=== PATIENT | male | born 1985 | race African-American/Black ===

== ENCOUNTER 2025-03-10 07:25 | Inpatient (IN) | payer MEDICAID, OTHER ==
[~2025-03-10] VITALS: Ht 177.8 cm; Wt 110.6 kg
[2025-03-10] MEDS: ONDANSETRON HCL 4 MG/2 ML VIAL IV ONE (08:24)
[2025-03-10] MEDS: KETOROLAC TROMETH 30 MG/ML 1ML VIAL IV ONE (08:24)
[2025-03-10 08:30] VITALS: PULSE 67; RESP 18; O2SAT 98
--- NOTE | 2025-03-10 08:44 | DVH ---
CLINICAL INFORMATION: Left kidney stone. TECHNIQUE: Axial CT images of the abdomen and pelvis were obtained without IV contrast. Coronal and sagittal reformatted images were obtained, reviewed, and stored. Evaluation of the parenchymal organs is limited without IV contrast. Evaluation of the bowel and mesentery is limited without oral contrast. All CT scans at this medical facility are performed using dose modulation techniques as appropriate to a performed exam including the following: Automated exposure control was utilized; adjustment of the MA and/or KV according to patient size; and use of iterative reconstruction technique. CTDIvol = 23.23 mGy DLP = 1490.16 mGy-cm COMPARISON: None FINDINGS: Lung bases: Lung bases are clear. Liver: Grossly unremarkable in its noncontrast enhanced appearance. No abnormal density or focal lesion identified. Biliary: No calcified gallstones or biliary ductal dilatation. Spleen: Unremarkable. Pancreas: Grossly unremarkable in its noncontrast enhanced appearance. Adrenal glands: Left adrenal nodule measures up to 2 cm with indeterminate density on noncontrast enhanced CT. Kidneys and bladder: Moderate left hydronephrosis and hydroureter. Obstructing calculus measuring up to 2.5 mm at the ureterovesical junction. There is also a calculus in the left posterior bladder measuring up to 5 mm, possibly a recently passed calculus. No other urinary calculi visualized. Aorta/Vascular: No aneurysm or significant calcification. Lymph nodes: No mass or lymphadenopathy. Bowel/mesentery: No small bowel obstruction. No free air or free fluid. Appendix is visualized and appears unremarkable. Scattered small colonic diverticula without adjacent inflammatory changes to suggest diverticulitis. Moderate stool in the colon. Pelvic organs: Grossly unremarkable. Abdominal wall: No mass or hernia. Bones: No acute fracture or suspicious intraosseous lesion. IMPRESSION: 1. Moderate left hydronephrosis and hydroureter with obstructing 2.5 mm calculus at the left ureterovesical junction. There is also a 5 mm calculus in the left posterior bladder, which may be a recently passed calculus. Correlate with clinical findings. 2. No other renal or ureteral calculi are seen. 3. Scattered small colonic diverticula without adjacent inflammatory changes to suggest diverticulitis. 4. Moderate stool in the colon. 5. Indeterminate left adrenal nodule measuring up to 2 cm. Are ACR white paper on incidentally detected adrenal masses, for 1-2 cm adrenal masses with no prior imaging and no cancer history, most likely benign etiology. Consider 12 month follow-up adrenal CT.
[2025-03-10 09:20] LABS: Hematocrit 47.0 % (41.0-53.0); Hemoglobin 16.0 g/dL (13.5-17.5); Mean Corpuscular Hemoglobin 34.0 pg (28.0-32.0); Mean Corpuscular Volume 99.8 fL (80.0-100.0); Nucleated Red Blood Cells % 0.1 %
[2025-03-10 09:22] LABS: Potassium 4.5 mmol/L (3.5-5.1); Sodium 142 mmol/L (136-145)
[2025-03-10 09:23] LABS: Anion Gap 7 (5-15); Calcium 10.1 mg/dL (8.7-10.4); Carbon Dioxide 24 mmol/L (20-31)
[2025-03-10 09:28] LABS: BUN/Creatinine Ratio 6.5 (10.0-20.0); Blood Urea Nitrogen 13 mg/dL (9-23); Chloride 111 mmol/L (98-107); Glucose 86 mg/dL (74-106)
[2025-03-10] MEDS: MORPHINE SULFATE 4 MG/ML SYR/VIAL IV ONE (13:22)
[2025-03-10 13:43] LABS: Urine Budding Yeast FEW /hpf (None Seen); Urine Protein, UAD Negative (Negative)
--- NOTE | 2025-03-10 14:24 | ED.PDOC ---
General HPI Comments 39-year-old male here today with the complaints of left-sided flank pain that has been going on for five days. Patient states that he was diagnosed with a kidney stone approximately five days ago and was prescribed ibuprofen and told that the kidney stone would pass but his pain has persisted and even gotten worse. No dysuria or hematuria. Endorses nausea without vomiting. No fevers or chills. No trauma. No rash. No other pain or symptoms. No prior surgical history on his abdomen. No Testicular pain. Chief Complaint: Flank Pain Time Seen by MD: 07:41 Allergies: Coded Allergies: NO KNOWN ALLERGIES (Unverified , 03/10/25) Mode of Arrival: Ambulatory Past Medical History Past Medical History (Contd): Kidney stone Surgical History: Denies all surgeries All Other Systems: Reviewed and Negative (Negative except as per HPI above) Physical Exam General Appearance: Mild Distress, Normal HEENT: Normal ENT Inspection, Pharynx Normal, TMs Normal Neck: Full Range of Motion, Non-Tender, Normal, Normal Inspection Respiratory: Chest Non-Tender, Lungs Clear, No Accessory Muscle Use, No Respiratory Distress, Normal Breath Sounds Cardiovascular: No Edema, No JVD, No Murmur, No Gallop, Normal Peripheral Pulses, Regular Rate/Rhythm Breast Exam: Deferred Gastrointestinal: No Organomegaly, Non Tender, No Pulsatile Mass, Normal Bowel Sounds, Soft, Other (Mild left CVAT) Genitalia: Deferred Pelvic: Deferred Rectal: Deferred Extremities: No calf tenderness, Normal capillary refill, Normal inspection, Normal range of motion, Non-tender, No pedal edema Musculoskeletal : Apperance: Normal 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, bunch maker II-XII nml as Tested, No Motor Deficits, Normal Affect, Normal Mood, No Sensory Deficits Cerebellar Function: Normal Reflexes: Normal Skin: Dry, Normal Color, Warm Lymphatic: No Adenopathy Was a procedure done? Was a procedure done?: No Differential Diagnosis Kidney stone (Female): AAA, , Appendicitis, Bowel obstruction, Cholelithiasis, Musculoskeletal pain, Renal failure, Urinary obstruction, Urolithiasis X-Ray, Labs, Meds, VS Vital Signs Date Time Temp Pulse Resp B/P (MAP) Pulse Ox O2 Delivery O2 Flow Rate FiO2 03/10/25 14:08 98.7 66 19 141/105 (117) 99 98.7 03/10/25 14:07 66 19 141/105 03/10/25 13:22 80 22 152/95 03/10/25 13:20 80 20 152/95 (114) 97 03/10/25 10:22 98.2 69 18 176/138 (151) 99 98.2 03/10/25 08:30 67 18 98 Room Air* 0 21 03/10/25 08:03 67 18 98 Room Air 03/10/25 08:00 98.2 67 18 163/101 (121) 98 98.2 03/10/25 07:27 98.1 66 18 160/92 96 98.1 Lab Test 03/10/25 11:16 03/10/25 08:58 Range/Units Urine Color Colorless Yellow Urine Clarity Turbid H Clear Urine pH 5.5 5.0-9.0 Urine Specific [place] 1.006 1.001-1.035 Urine Protein Negative Negative Urine Ketones Negative Negative Urine Blood 3+ H Negative /uL Urine Nitrite Negative Negative Urine Bilirubin Negative Negative Urine Urobilinogen Normal Negative mg/dL Urine Leukocyte Esterase 1+ Negative /uL Urine RBC 13 0 - 3 /hpf Urine Microscopic WBC 21 H 0-3 /HPF Urine Squamous Epithelial Cells None seen <5 /hpf Urine Bacteria Few H None Seen /hpf Urine Yeast (Budding) Few None Seen /hpf Urine Glucose Normal Normal mg/dL White Blood Count 8.8 4.4-10.8 10^3/uL Red Blood Count 4.71 4.5-5.90 10^6/uL Hemoglobin 16.0 13.5-17.5 g/dL Hematocrit 47.0 41.0-53.0 % Mean Corpuscular Volume 99.8 80.0-100.0 fL Mean Corpuscular Hemoglobin 34.0 H 28.0-32.0 pg Mean Corpuscular Hemoglobin Concent 34.0 32.0-36.0 g/dL Red Cell Distribution Width 14.1 11.8-14.3 % Platelet Count 264 140-450 10^3/uL Mean Platelet Volume 7.7 6.9-10.8 fL Neutrophils (%) (Auto) 65.0 37.0-80.0 % Lymphocytes (%) (Auto) 25.9 10.0-50.0 % Monocytes (%) (Auto) 7.5 0.0-12.0 % Eosinophils (%) (Auto) 1.1 0.0-7.0 % Basophils (%) (Auto) 0.5 0.0-2.0 % Neutrophils # (Auto) 5.7 1.6-8.6 10 ^3/uL Lymphocytes # (Auto) 2.3 0.4-5.4 10 ^3/uL Monocytes # (Auto) 0.7 0-1.3 10 ^3/uL Eosinophils # (Auto) 0.1 0-0.8 10 ^3/uL Basophils # (Auto) 0 0-0.2 10 ^3/uL Nucleated Red Blood Cells 0.1 % Sodium Level 142 136-145 mmol/L Potassium Level 4.5 3.5-5.1 mmol/L Chloride Level 111 H 98-107 mmol/L Carbon Dioxide Level 24 20-31 mmol/L Anion Gap 7 5-15 Blood Urea Nitrogen 13 9-23 mg/dL Creatinine 1.99 H 0.700-1.30 mg/dL Glomerular Filtration Rate Calc 42 >90 mL/min BUN/Creatinine Ratio 6.5 L 10.0-20.0 Serum Glucose 86 74-106 mg/dL Calcium Level 10.1 8.7-10.4 mg/dL Current Medications Medications (Trade) Dose Ordered Sig/Roger Route Start Time Stop Time Status Last Admin Ketorolac Tromethamine (Toradol Injection) 15 mg ONCE ONCE IV 03/10/25 08:00 03/10/25 08:02 DC 03/10/25 08:24 Ondansetron HCl (Zofran) 4 mg O ONCE IV 03/10/25 08:00 03/10/25 08:02 DC 03/10/25 08:24 Morphine Sulfate 4 mg ONCE ONCE IV 03/10/25 13:00 03/10/25 13:01 DC 03/10/25 13:22 X-Ray, Labs, Meds, VS Comment 39-year-old male with known history of kidney stone here today with a presentat ion consistent with infected obstructed stone given positive UA with evidence of UTI and creatinine elevation and evidence of hydronephrosis on CT scan. Patient was started on fluids, pain medication, and antibiotics and will be admitted for further management and care. Images Reviewed?: Images reviewed and evaluated by me Time of 1ST Reevaluation: 14:22 Reevaluation 1ST: Unchanged Patient Education/Counseling: Diagnosis, Treatment, Prognosis Family Education/Counseling: No Family Present SEPSIS Sepsis Screen Date sepsis recognized/suspect: Mar 10, 2025 Time Sepsis recognized/suspect: 727 Recent Procedure: No On Antibiotic Therapy: No Respiratory Rate >20: No Heart Rate >90: No Temp<36 C (96.8 F) or >38.3 C: No SBP <90 or MAP <65 mmHG: No New Acute Mental Status Change: No Is the patient on CPAP, BIPAP,: No Physician Orders Ct Ab Pel Wo Con-No Oral Or Iv (03/10/25 07:58) Ondansetron Hcl (Zofran) (03/10/25 08:00) Ceftriaxone 1gm/50ml (Rocephin) (03/10/25 14:30) Sodium Chloride 0.9% (03/10/25 14:30) Vital Signs Date Time Temp Pulse Resp B/P (MAP) Pulse Ox O2 Delivery O2 Flow Rate FiO2 03/10/25 14:08 98.7 66 19 141/105 (117) 99 98.7 03/10/25 14:07 66 19 141/105 03/10/25 13:22 80 22 152/95 03/10/25 13:20 80 20 152/95 (114) 97 03/10/25 10:22 98.2 69 18 176/138 (151) 99 98.2 03/10/25 08:30 67 18 98 Room Air* 0 21 03/10/25 08:03 67 18 98 Room Air 03/10/25 08:00 98.2 67 18 163/101 (121) 98 98.2 03/10/25 07:27 98.1 66 18 160/92 96 98.1 Laboratory Tests Test 03/10/25 08:58 White Blood Count 8.8 10^3/uL (4.4-10.8) Medications Medications Dose Ordered Sig/Roger Route Start Time Stop Time Status Last Admin Dose Admin Ketorolac Tromethamine 15 mg ONCE ONCE IV 03/10/25 08:00 03/10/25 08:02 DC 03/10/25 08:24 Morphine Sulfate 4 mg ONCE ONCE IV 03/10/25 13:00 03/10/25 13:01 DC 03/10/25 13:22 Ondansetron HCl 4 mg O ONCE IV 03/10/25 08:00 03/10/25 08:02 DC 03/10/25 08:24 Departure 1 Departure Time of Disposition: 14:23 Impression: Primary Impression: Kidney stone on left side Additional Impressions: Hydronephrosis due to obstruction of ureter Pyelonephritis Disposition: ADMITTED INPATIENT Admit to: Tele Condition: Guarded Critical Care Note Critical Care Time?: Yes (35 min-critical care time only) Stability Stability form required: No Heart Score Heart Score: Heart Score Response (Comments) Value History N/A 0 EKG N/A 0 Age N/A 0 Risk Factors N/A 0 Troponin N/A 0 Total 0 LEONEL LAGOS MD Mar 10, 2025 14:23
[2025-03-10] MEDS ORDERED: ACETAMINOPHEN 325 MG TAB PO PRN (14:45)
--- NOTE | 2025-03-10 14:57 | DVHHP2 ---
History of Present Illness History of Present Illness This is a 39-year-old male with no past medical history who presents with five days of left flank pain. He was evaluated at another facility where he was diagnosed with kidney stones and discharged on ibuprofen, but his pain persisted. He denies dysuria, frequency, urgency, fever, chills, nausea, or vomiting. On arrival he is afebrile, hemodynamically stable except for elevated blood pressure, and his pain continues despite analgesics. Labs show creatinine 1.9 (baseline unknown) and UA with hematuria and trace leukocyte esterase. CT abdomen/pelvis shows a 2.5 mm calculus at the left ureterovesical junction with mild left hydroureteronephrosis and a 5 mm calculus in the bladder, likely recently passed. PMHx: None. PSHx: None. Social History: Denies tobacco, alcohol, or illicit drugs. Lives at home. Allergies: NKDA. Medications: None at home. ROS: Negative except for left flank pain. Review of Systems Allergies: Coded Allergies: NO KNOWN ALLERGIES (Unverified , 03/10/25) Medications Current Medications Medications Dose Ordered Sig/Roger Route Start Time Stop Time Status Last Admin Dose Admin Sodium Chloride 1,000 ml @ 120 mls/hr Q8H20M IV 03/10/25 14:45 UNV Acetaminophen 650 mg Q6HP PRN PO 03/10/25 14:45 UNV Morphine Sulfate 2 mg Q4HPRN PRN IV 03/10/25 14:45 UNV Ketorolac Tromethamine 30 mg Q6HPRN PRN IV 03/10/25 14:45 03/15/25 14:44 UNV Ceftriaxone Sodium 50 ml @ 100 mls/hr DAILY@09 IV 03/10/25 14:45 UNV Tamsulosin HCl 0.4 mg QPM PO 03/10/25 14:45 UNV Exam Vital Signs Vital Signs Date Time Temp Pulse Resp B/P (MAP) Pulse Ox O2 Delivery O2 Flow Rate FiO2 03/10/25 14:08 98.7 66 19 141/105 (117) 99 98.7 03/10/25 08:30 Room Air* 0 21 Exam General: Alert, in mild distress due to pain. Lungs: Clear to auscultation. Heart: Regular rhythm. Abdomen: Soft, nondistended, no rebound or guarding. Back: Left CVA tenderness present. Extremities: No edema. Neuro: Nonfocal. Labs/Xrays Labs Test 03/10/25 11:16 03/10/25 08:58 Range/Units Urine Color Colorless Yellow Urine Clarity Turbid H Clear Urine pH 5.5 5.0-9.0 Urine Specific [place] 1.006 1.001-1.035 Urine Protein Negative Negative Urine Ketones Negative Negative Urine Blood 3+ H Negative /uL Urine Nitrite Negative Negative Urine Bilirubin Negative Negative Urine Urobilinogen Normal Negative mg/dL Urine Leukocyte Esterase 1+ Negative /uL Urine RBC 13 0 - 3 /hpf Urine Microscopic WBC 21 H 0-3 /HPF Urine Squamous Epithelial Cells None seen <5 /hpf Urine Bacteria Few H None Seen /hpf Urine Yeast (Budding) Few None Seen /hpf Urine Glucose Normal Normal mg/dL White Blood Count 8.8 4.4-10.8 10^3/uL Red Blood Count 4.71 4.5-5.90 10^6/uL Hemoglobin 16.0 13.5-17.5 g/dL Hematocrit 47.0 41.0-53.0 % Mean Corpuscular Volume 99.8 80.0-100.0 fL Mean Corpuscular Hemoglobin 34.0 H 28.0-32.0 pg Mean Corpuscular Hemoglobin Concent 34.0 32.0-36.0 g/dL Red Cell Distribution Width 14.1 11.8-14.3 % Platelet Count 264 140-450 10^3/uL Mean Platelet Volume 7.7 6.9-10.8 fL Neutrophils (%) (Auto) 65.0 37.0-80.0 % Lymphocytes (%) (Auto) 25.9 10.0-50.0 % Monocytes (%) (Auto) 7.5 0.0-12.0 % Eosinophils (%) (Auto) 1.1 0.0-7.0 % Basophils (%) (Auto) 0.5 0.0-2.0 % Neutrophils # (Auto) 5.7 1.6-8.6 10 ^3/uL Lymphocytes # (Auto) 2.3 0.4-5.4 10 ^3/uL Monocytes # (Auto) 0.7 0-1.3 10 ^3/uL Eosinophils # (Auto) 0.1 0-0.8 10 ^3/uL Basophils # (Auto) 0 0-0.2 10 ^3/uL Nucleated Red Blood Cells 0.1 % Sodium Level 142 136-145 mmol/L Potassium Level 4.5 3.5-5.1 mmol/L Chloride Level 111 H 98-107 mmol/L Carbon Dioxide Level 24 20-31 mmol/L Anion Gap 7 5-15 Blood Urea Nitrogen 13 9-23 mg/dL Creatinine 1.99 H 0.700-1.30 mg/dL Glomerular Filtration Rate Calc 42 >90 mL/min BUN/Creatinine Ratio 6.5 L 10.0-20.0 Serum Glucose 86 74-106 mg/dL Calcium Level 10.1 8.7-10.4 mg/dL SEPSIS Sepsis Screen Date sepsis recognized/suspect: Mar 10, 2025 Time Sepsis recognized/suspect: 727 Recent Procedure: No On Antibiotic Therapy: No Respiratory Rate >20: No Heart Rate >90: No Temp<36 C (96.8 F) or >38.3 C: No SBP <90 or MAP <65 mmHG: No New Acute Mental Status Change: No Is the patient on CPAP, BIPAP,: No Physician Orders Ct Ab Pel Wo Con-No Oral Or Iv (03/10/25 07:58) Ondansetron Hcl (Zofran) (03/10/25 08:00) Ceftriaxone 1gm/50ml (Rocephin) (03/10/25 14:30) Sodium Chloride 0.9% (03/10/25 14:30) Urine Bacterial Culture (03/10/25 14:39) Admit (03/10/25 14:40) Code Status (03/10/25 14:40) Vital Signs .PER UNIT PROTOCOL (03/10/25 14:40) Review Orders With Adm.Md (03/10/25 14:40) Regular Diet (03/10/25 Dinner) Sodium Chloride 0.9% (03/10/25 14:45) Acetaminophen Tablet (Tylenol Tablet) (03/10/25 14:45) Notify Md Of Changes From Base (03/10/25 14:40) Advance Directive (03/10/25 14:40) Blood Culture (03/10/25 14:40) Patient Condition (03/10/25 14:40) Allergies (03/10/25 14:40) Drug Screen (03/10/25 14:40) Hemoglobin A1c (03/10/25 14:40) Morphine Sulfate Injection (03/10/25 14:45) Oxygen By Nasal Cannula (03/10/25 14:40) Stat Ekg For Chest Pain (03/10/25 14:40) Notify Of Changes From Base (03/10/25 14:40) Strike Plate Attacher For 24 Hours (03/10/25 14:40) Emergency Dysrhythmia Protocol (03/10/25 14:40) Rhythm Strips Once Every Shift (03/10/25 14:40) Ketorolac Injection (Toradol Injection) (03/10/25 14:45) Ceftriaxone 1gm/50ml (Rocephin) (03/10/25 14:45) * Urology Consult (03/10/25 14:40) Tamsulosin Hydrochloride (Flomax) (03/10/25 14:45) Strain All Urine (03/10/25 ) Vital Signs Date Time Temp Pulse Resp B/P (MAP) Pulse Ox O2 Delivery O2 Flow Rate FiO2 03/10/25 14:08 98.7 66 19 141/105 (117) 99 98.7 03/10/25 14:07 66 19 141/105 03/10/25 13:22 80 22 152/95 03/10/25 13:20 80 20 152/95 (114) 97 03/10/25 10:22 98.2 69 18 176/138 (151) 99 98.2 03/10/25 08:30 67 18 98 Room Air* 0 21 03/10/25 08:03 67 18 98 Room Air 03/10/25 08:00 98.2 67 18 163/101 (121) 98 98.2 03/10/25 07:27 98.1 66 18 160/92 96 98.1 Laboratory Tests Test 03/10/25 08:58 White Blood Count 8.8 10^3/uL (4.4-10.8) Medications Medications Dose Ordered Sig/Roger Route Start Time Stop Time Status Last Admin Dose Admin Ketorolac Tromethamine 15 mg ONCE ONCE IV 03/10/25 08:00 03/10/25 08:02 DC 03/10/25 08:24 15 MG Morphine Sulfate 4 mg ONCE ONCE IV 03/10/25 13:00 03/10/25 13:01 DC 03/10/25 13:22 4 MG Ondansetron HCl 4 mg O ONCE IV 03/10/25 08:00 03/10/25 08:02 DC 03/10/25 08:24 4 MG Assessment/Plan Assessment/Plan # Nephrolithiasis with hydroureteronephrosis CT shows a 2.5 mm obstructing stone at the left UVJ with mild hydroureteronephrosis, and a 5 mm stone in the bladder likely recently passed. Pain is persistent and creatinine is elevated, raising concern for obstruction. Will provide analgesia with morphine, ketorolac, and acetaminophen, maintain IV hydration, and obtain urology consultation for further management. # Acute kidney injury Creatinine is 1.9 with unknown baseline, likely prerenal/obstructive from the UVJ stone. Will trend renal function, avoid nephrotoxins, continue IV fluids, and reassess after relief of obstruction. # Acute cystitis UA shows hematuria with trace LE and clinical suspicion for infection in the setting of obstruction. Will start ceftriaxone and obtain urine and blood cultures, with antibiotic adjustments based on culture results. # Hypertension, elevated readings Blood pressure elevated likely secondary to pain and stress response. Will treat pain aggressively and monitor BP; no immediate need for antihypertensives unless sustained. Case discussed with Dr Burt Full code Plan discussed with: Patient My Orders Orders - MAGGY SOLIS RESIDENT Procedure Category Date Status Time Admit ADMIT 03/10/25 Transmitted 14:40 Code Status CODE 03/10/25 Transmitted 14:40 Vital Signs [facility] 03/10/25 In Process 14:40 Review Orders With CHIQUI 03/10/25 In Process Adm. 14:40 Regular Diet DIET 03/10/25 Transmitted Dinner Sodium Chloride 0.9% PHA 03/10/25 Logged 14:45 Acetaminophen Tablet PHA 03/10/25 Logged (Tylenol Tablet) 14:45 Notify Of Changes [facility] 03/10/25 In Process From Base 14:40 Advance Directive [facility] 03/10/25 In Process 14:40 Blood Culture AB 03/10/25 Logged 14:40 Patient Condition ORDERS 03/10/25 Transmitted 14:40 Allergies [facility] 03/10/25 In Process 14:40 Drug Screen LAB 03/10/25 Logged 14:40 Hemoglobin A1c LAB 03/10/25 Logged 14:40 Morphine Sulfate PHA 03/10/25 Logged Injection 14:45 Oxygen By Nasal RT 03/10/25 Transmitted Cannula 14:40 Stat Ekg For Chest [facility] 03/10/25 In Process Pain 14:40 Notify Md Of Changes [facility] 03/10/25 In Process From Base 14:40 Strike Plate Attacher For [facility] 03/10/25 In Process 24 Hours 14:40 Emergency Dysrhythmia [facility] 03/10/25 In Process Protocol 14:40 Rhythm Strips Once [facility] 03/10/25 In Process Every Shift 14:40 Ketorolac Injection PHA 03/10/25 Logged (Toradol Injection) 14:45 Ceftriaxone 1gm/50ml PHA 03/10/25 Logged (Rocephin) 14:45 * Urology Consult CONS 03/10/25 Transmitted 14:40 Tamsulosin PHA 03/10/25 Logged Hydrochloride (Flomax) 14:45 Strain All Urine ED NURSING 03/10/25 Transmitted Date of Service: Mar 10, 2025 Billing Provider: RITA BURT MD Common Visit Codes: [id number] INP/OBS CARE (HIGH) Secondary Visit Codes: [id number] CARE PLAN 30 MINUTES MAGGY SOLIS RESIDENT Mar 10, 2025 14:57
--- NOTE | 2025-03-10 16:07 | DVHINCON2 ---
Date of service: Mar 10, 2025 Referring Physician Hospitalist Reason for Consultation Left flank pain History of Present Illness 39-year-old male here today with the complaints of left-sided flank pain that has been going on for five days. Patient states that he was diagnosed with a kidney stone approximately five days ago and was prescribed ibuprofen and told that the kidney stone would pass but his pain has persisted and even gotten worse. No dysuria or hematuria. Endorses nausea without vomiting. No fevers or chills. No trauma. No rash. No other pain or symptoms. No prior surgical history on his abdomen. No Testicular pain. Chief Complaint: Flank Pain Allergies: Coded Allergies: NO KNOWN ALLERGIES (Unverified , 03/10/25) Mode of Arrival: Ambulatory Past Medical History Kidney stone Allergies: Coded Allergies: NO KNOWN ALLERGIES (Unverified , 03/10/25) Current Medications Current Medications Medications (Trade) Dose Ordered Sig/Roger Route PRN Reason Start Time Stop Time Status Last Admin Sodium Chloride 1,000 ml @ 120 mls/hr Q8H20M IV 03/10/25 14:45 Acetaminophen (Tylenol Tablet) 650 mg Q6HP PRN PO PAIN SCALE 1-3 OR TEMP>100.4 03/10/25 14:45 Morphine Sulfate 2 mg Q4HPRN PRN IV SEVERE PAIN (7-10 PAIN SCALE) 03/10/25 14:45 Ketorolac Tromethamine (Toradol Injection) 30 mg Q6HPRN PRN IV MODERATE PAIN (4-6 PAIN SCALE) 03/10/25 14:45 03/15/25 14:44 Ceftriaxone Sodium 50 ml @ 100 mls/hr DAILY@09 IV 03/10/25 14:45 Tamsulosin HCl (Flomax) 0.4 mg QPM PO 03/10/25 18:00 Review of Systems All Other Systems: Reviewed and Negative (Negative except as per HPI above) Vital Signs Vital Signs Date Time Temp Pulse Resp B/P (MAP) Pulse Ox O2 Delivery O2 Flow Rate FiO2 03/10/25 14:08 98.7 66 19 141/105 (117) 99 98.7 03/10/25 08:30 Room Air* 0 21 Physical Exam General Appearance: Mild Distress, Normal HEENT: Normal ENT Inspection, Pharynx Normal, TMs Normal Neck: Full Range of Motion, Non-Tender, Normal, Normal Inspection Respiratory: Chest Non-Tender, Lungs Clear, No Accessory Muscle Use, No Respiratory Distress, Normal Breath Sounds Cardiovascular: No Edema, No JVD, No Murmur, No Gallop, Normal Peripheral Pulses, Regular Rate/Rhythm Breast Exam: Deferred Gastrointestinal: No Organomegaly, Non Tender, No Pulsatile Mass, Normal Bowel Sounds, Soft, Other (Mild left CVAT) Genitalia: Deferred Pelvic: Deferred Rectal: Deferred Extremities: No calf tenderness, Normal capillary refill, Normal inspection, Normal range of motion, Non-tender, No pedal edema Musculoskeletal : Apperance: Normal 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, 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 as Tested, No Motor Deficits, Normal Affect, Normal Mood, No Sensory Deficits Cerebellar Function: Normal Reflexes: Normal Skin: Dry, Normal Color, Warm Lymphatic: No Adenopathy Labs/Diagnostic Data Labs Test 03/10/25 11:16 03/10/25 08:58 Range/Units Urine Color Colorless Yellow Urine Clarity Turbid H Clear Urine pH 5.5 5.0-9.0 Urine Specific [place] 1.006 1.001-1.035 Urine Protein Negative Negative Urine Ketones Negative Negative Urine Blood 3+ H Negative /uL Urine Nitrite Negative Negative Urine Bilirubin Negative Negative Urine Urobilinogen Normal Negative mg/dL Urine Leukocyte Esterase 1+ Negative /uL Urine RBC 13 0 - 3 /hpf Urine Microscopic WBC 21 H 0-3 /HPF Urine Squamous Epithelial Cells None seen <5 /hpf Urine Bacteria Few H None Seen /hpf Urine Yeast (Budding) Few None Seen /hpf Urine Glucose Normal Normal mg/dL White Blood Count 8.8 4.4-10.8 10^3/uL Red Blood Count 4.71 4.5-5.90 10^6/uL Hemoglobin 16.0 13.5-17.5 g/dL Hematocrit 47.0 41.0-53.0 % Mean Corpuscular Volume 99.8 80.0-100.0 fL Mean Corpuscular Hemoglobin 34.0 H 28.0-32.0 pg Mean Corpuscular Hemoglobin Concent 34.0 32.0-36.0 g/dL Red Cell Distribution Width 14.1 11.8-14.3 % Platelet Count 264 140-450 10^3/uL Mean Platelet Volume 7.7 6.9-10.8 fL Neutrophils (%) (Auto) 65.0 37.0-80.0 % Lymphocytes (%) (Auto) 25.9 10.0-50.0 % Monocytes (%) (Auto) 7.5 0.0-12.0 % Eosinophils (%) (Auto) 1.1 0.0-7.0 % Basophils (%) (Auto) 0.5 0.0-2.0 % Neutrophils # (Auto) 5.7 1.6-8.6 10 ^3/uL Lymphocytes # (Auto) 2.3 0.4-5.4 10 ^3/uL Monocytes # (Auto) 0.7 0-1.3 10 ^3/uL Eosinophils # (Auto) 0.1 0-0.8 10 ^3/uL Basophils # (Auto) 0 0-0.2 10 ^3/uL Nucleated Red Blood Cells 0.1 % Sodium Level 142 136-145 mmol/L Potassium Level 4.5 3.5-5.1 mmol/L Chloride Level 111 H 98-107 mmol/L Carbon Dioxide Level 24 20-31 mmol/L Anion Gap 7 5-15 Blood Urea Nitrogen 13 9-23 mg/dL Creatinine 1.99 H 0.700-1.30 mg/dL Glomerular Filtration Rate Calc 42 >90 mL/min BUN/Creatinine Ratio 6.5 L 10.0-20.0 Serum Glucose 86 74-106 mg/dL Hemoglobin A1c 5.3 <5.7 % A1C Calcium Level 10.1 8.7-10.4 mg/dL PATIENT: DARI NESSACCT: [id number] UNIT: [id number] : 1985 LOC: ER ROOM / BED: / AGE / SEX: 39 / M ADM STATUS: REG ER SERVICE 0758 ORDERING PHYSICIAN: LOENEL LAGOS MD PROCEDURE(s): ABPL - CT AB PEL WO CON-NO ORAL OR IV REASON: left kidney stone 4d ago, eval for signs of obstruction ORDER NUMBER(s): [id number], ACCESSION NUMBER(s): [id number] CLINICAL INFORMATION: Left kidney stone. TECHNIQUE: Axial CT images of the abdomen and pelvis were obtained without IV contrast. Coronal and sagittal reformatted images were obtained, reviewed, and stored. Evaluation of the parenchymal organs is limited without IV contrast. Evaluation of the bowel and mesentery is limited without oral contrast. All CT scans at this medical facility are performed using dose modulation techniques as appropriate to a performed exam including the following: Automated exposure control was utilized; adjustment of the MA and/or KV according to patient size; and use of iterative reconstruction technique. CTDIvol = 23.23 mGy DLP = 1490.16 mGy-cm COMPARISON: None FINDINGS: Lung bases: Lung bases are clear. Liver: Grossly unremarkable in its noncontrast enhanced appearance. No abnormal density or focal lesion identified. Biliary: No calcified gallstones or biliary ductal dilatation. Spleen: Unremarkable. Pancreas: Grossly unremarkable in its noncontrast enhanced appearance. Adrenal glands: Left adrenal nodule measures up to 2 cm with indeterminate density on noncontrast enhanced CT. Kidneys and bladder: Moderate left hydronephrosis and hydroureter. Obstructing calculus measuring up to 2.5 mm at the ureterovesical junction. There is also a calculus in the left posterior bladder measuring up to 5 mm, possibly a recently passed calculus. No other urinary calculi visualized. Aorta/Vascular: No aneurysm or significant calcification. Lymph nodes: No mass or lymphadenopathy. Bowel/mesentery: No small bowel obstruction. No free air or free fluid. Appendix is visualized and appears unremarkable. Scattered small colonic diverticula without adjacent inflammatory changes to suggest diverticulitis. Moderate stool in the colon. Pelvic organs: Grossly unremarkable. Abdominal wall: No mass or hernia. Bones: No acute fracture or suspicious intraosseous lesion. IMPRESSION: 1. Moderate left hydronephrosis and hydroureter with obstructing 2.5 mm calculus at the left ureterovesical junction. There is also a 5 mm calculus in the left posterior bladder, which may be a recently passed calculus. Correlate with clinical findings. 2. No other renal or ureteral calculi are seen. 3. Scattered small colonic diverticula without adjacent inflammatory changes to suggest diverticulitis. 4. Moderate stool in the colon. 5. Indeterminate left adrenal nodule measuring up to 2 cm. Are ACR white paper on incidentally detected adrenal masses, for 1-2 cm adrenal masses with no prior imaging and no cancer history, most likely benign etiology. Consider 12 month follow-up adrenal CT. ATED BY: AURELIO SANCHEZ DO DICTATED DATE/TIME: 03/10/25841 SIGNED BY: AURELIO SANCHEZ DO SIGNED DATE/TIME: 03/10/25841 CC: Assessment 3 mm left UVJ stone Moderate hydronephrosis Left flank pain Plan/Recommendation Expulsive measures Check for ureteral jetting via US If no jetting, will consult IR for left PNT Plan discussed with: Patient, Other TRICIA WEATHERS MD Mar 10, 2025 16:07
--- NOTE | 2025-03-10 18:00 | DVH ---
US KIDNEY COMPARISON: None INDICATION: look for left ureteral jetting TECHNIQUE: Ultrasound exam of the retroperitoneum was performed. FINDINGS: The right kidney is 10.9 cm. The left kidney is 11.2 cm. No collecting system dilatation. Prevoid volume of the bladder measures 311 cc. Bilateral ureteral jets visualized. IMPRESSION: NO COLLECTING SYSTEM DILATATION.
[2025-03-10] MEDS: SODIUM CHLORIDE 0.9% 1,000 ML IV SCH (20:01)
[2025-03-10] MEDS: SODIUM CHLORIDE 0.9% 1,000 ML IV ONE (20:01)
[2025-03-10] MEDS: TAMSULOSIN HYDROCHLORIDE 0.4 MG CAP PO SCH (20:02)
[2025-03-10 21:25] LABS: Amphetamine Screen, Urine Neg (NEGATIVE); Barbiturate Scree,Urine Neg (NEGATIVE); Benzodiazephine Screen, Urine Neg (NEGATIVE); Cannabinoid Screen, Urine Pos (NEGATIVE); Cocaine Screen, Urine Neg (NEGATIVE); Opiate Scree,Urine Neg (NEGATIVE); Phencyclidine Screen, Urine Neg (NEGATIVE)
[2025-03-11 05:33] LABS: Alanine Aminotransferase 17 U/L (7-40); Albumin 4.6 g/dL (3.2-4.8); Alkaline Phosphatase 52 U/L (46-116); Anion Gap 6 (5-15); BUN/Creatinine Ratio 9.5 (10.0-20.0); Blood Urea Nitrogen 13 mg/dL (9-23); Calcium 9.3 mg/dL (8.7-10.4); Carbon Dioxide 26 mmol/L (20-31); Hemoglobin 15.1 g/dL (13.5-17.5); Potassium 3.8 mmol/L (3.5-5.1); Sodium 144 mmol/L (136-145); Total Protein 7.3 g/dL (5.7-8.2)
[2025-03-11 05:35] LABS: Hematocrit 43.4 % (41.0-53.0); Mean Corpuscular Hemoglobin 34.5 pg (28.0-32.0); Mean Corpuscular Volume 99.5 fL (80.0-100.0); Nucleated Red Blood Cells % 0.1 %
[2025-03-11 05:37] LABS: Bilirubin, Total 0.3 mg/dL (0.2-1.0); Chloride 112 mmol/L (98-107); Glucose 112 mg/dL (74-106)
[2025-03-11] MEDS: KETOROLAC TROMETH 30 MG/ML 1ML VIAL IV PRN (07:41)
[2025-03-11] MEDS ORDERED: ONDANSETRON HCL 4 MG/2 ML VIAL IV PRN (07:45)
[2025-03-11] MEDS: ONDANSETRON HCL 4 MG/2 ML VIAL ONE (07:49)
[2025-03-11] MEDS: MORPHINE SULFATE INJ 2 MG/ml SYRG IV PRN (10:25)
[2025-03-11] MEDS: MORPHINE SULFATE 4 MG/ML SYR/VIAL ONE (10:29)
[2025-03-11 10:40] LABS: Cholesterol 146.0 mg/dL (< 200); Magnesium 2.1 mg/dL (1.6-2.6)
[2025-03-11 10:44] LABS: INR 0.98 (0.9-1.15); Partial Thromboplastin Time 28.7 SEC (24.5-34.5); Prothrombin Time 10.4 sec (9.3-11.8)
[2025-03-11 10:54] LABS: HDL Cholesterol 30.0 mg/dL (40-59); Triglycerides 253.0 mg/dL (< 150)
[2025-03-11] MEDS: SODIUM CHLORIDE 0.9% 1,000 ML IV ONE (11:22)
[2025-03-11] MEDS: SODIUM CHLORIDE 0.9% 2,100 ML IV ONE (11:31)
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
--- NOTE | 2025-03-11 12:16 | DVHPN2 ---
Progress Note - Dictate Date Seen: Mar 11, 2025 Has the PT tested + for MRSA If YES, has PT been informed?: No Medical Necessity Reason Pt with a Central, PICC or Fol: No Medical Necessity Reason 3 mm left UVJ stone vital signs Vital Sign Date Time Temp Pulse Resp B/P (MAP) Pulse Ox O2 Delivery O2 Flow Rate FiO2 03/11/25 11:31 68 20 118/64 03/11/25 10:23 97 03/11/25 09:17 98.0 98.0 03/10/25 20:06 Room Air* 0 21 Total Intake and Output 03/10/25 03/10/25 03/11/25 15:00 23:00 07:00 Intake Total 1050 ml Balance 1050 ml medications Current Medications Medications Dose Ordered Sig/Roger Route Start Time Stop Time Status Last Admin Dose Admin Sodium Chloride 1,000 ml @ 120 mls/hr Q8H20M IV 03/10/25 14:45 03/11/25 11:14 120 MLS/HR Acetaminophen 650 mg Q6HP PRN PO 03/10/25 14:45 Morphine Sulfate 2 mg Q4HPRN PRN IV 03/10/25 14:45 03/11/25 10:25 2 MG Ketorolac Tromethamine 30 mg Q6HPRN PRN IV 03/10/25 14:45 03/15/25 14:44 03/11/25 07:41 30 MG Tamsulosin HCl 0.4 mg QPM PO 03/10/25 18:00 03/10/25 20:02 0.4 MG Ceftriaxone Sodium 50 ml @ 100 mls/hr DAILY@09 IV 03/11/25 09:00 03/11/25 07:41 100 MLS/HR Ondansetron HCl 4 mg Q4HPRN PRN IV 03/11/25 07:45 objective PATIENT: DARI NESSACCT: [id number] UNIT: [id number] : 1985 LOC: OVERFLOW ROOM / BED: [address] [place] [address] AGE / SEX: 39 / M ADM STATUS: ADM IN SERVICE 1602 ORDERING PHYSICIAN: TRICIA WEATHERS MD PROCEDURE(s): KIDUS - KIDNEY REASON: look for left ureteral jetting ORDER NUMBER(s): [id number], ACCESSION NUMBER(s): [id number] US KIDNEY COMPARISON: None INDICATION: look for left ureteral jetting TECHNIQUE: Ultrasound exam of the retroperitoneum was performed. FINDINGS: The right kidney is 10.9 cm. The left kidney is 11.2 cm. No collecting system dilatation. Prevoid volume of the bladder measures 311 cc. Bilateral ureteral jets visualized. IMPRESSION: NO COLLECTING SYSTEM DILATATION. ATED BY: RONALDO MOYA MD DICTATED DATE/TIME: 03/10/251756 SIGNED BY: RONALDO MOYA MD SIGNED DATE/TIME: 03/10/251756 CC: laboratory and microbiology Laboratory Tests 03/11/25 04:43 Test 03/11/25 04:43 Range/Units Serum Glucose 112 H 74-106 mg/dL Assessment/Plan 3 mm left UVJ stone Moderate hydronephrosis- resolved on SHERINE (03/10/25) Bilateral ureteral jetting seen. Left flank pain Pain control. Discharge when stable and manage stone as outpatient with ESWL. Plan discussed with: Patient, Other TRICIA WEATHERS MD Mar 11, 2025 12:16
[2025-03-11 21:00] VITALS: BP_SYST 137; BP_SYST 97; BP_DIAS 51; BP_DIAS 62; PULSE 72; PULSE 88; RESP 18; TEMP 97.9; TEMP 98; O2SAT 95; O2SAT 96
[2025-03-11 21:10] VITALS: PULSE 66; RESP 16; O2SAT 96
[2025-03-11 21:44] VITALS: BP 148/99; PULSE 74; PULSE 88; RESP 18; TEMP 98.3; O2SAT 96
[2025-03-12] VITALS (7 sets, daily range): BP systolic 135–144; BP diastolic 78–92; PULSE 56–84; RESP 14–20; TEMP 97.8–98.4; O2SAT 92–100
[2025-03-12 06:17] LABS: Potassium 4.2 mmol/L (3.5-5.1)
[2025-03-12 06:18] LABS: Anion Gap 7 (5-15); Calcium 8.8 mg/dL (8.7-10.4); Carbon Dioxide 23 mmol/L (20-31)
[2025-03-12 06:23] LABS: BUN/Creatinine Ratio 7.0 (10.0-20.0); Glucose 88 mg/dL (74-106); Hematocrit 39.8 % (41.0-53.0); Hemoglobin 13.7 g/dL (13.5-17.5); Mean Corpuscular Hemoglobin 34.0 pg (28.0-32.0); Mean Corpuscular Volume 99.2 fL (80.0-100.0); Nucleated Red Blood Cells % 0.1 %
[2025-03-12 06:26] LABS: Blood Urea Nitrogen 8 mg/dL (9-23); Chloride 116 mmol/L (98-107); Sodium 146 mmol/L (136-145)
[2025-03-12 07:21] LABS: Alanine Aminotransferase 18.0 U/L (7-40); Albumin 3.9 g/dL (3.2-4.8); Total Protein 6.2 g/dL (5.7-8.2)
[2025-03-12 07:22] LABS: Bilirubin, Direct 0.1 mg/dL (<0.3); Bilirubin, Total 0.3 mg/dL (0.2-1.0)
[2025-03-12 07:23] LABS: Alkaline Phosphatase 42.0 U/L (46-116)
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
--- NOTE | 2025-03-12 14:38 | DVH ---
Date: 03/12/2025 02:00 PM Examination: XY KUB ABDOMEN SINGLE VIEW History: left obstructing 2.5 mm calculus at the ureterovesical junct COMPARISON: None TECHNIQUE: Frontal views of the abdomen was obtained. FINDINGS: Bowel gas pattern is unremarkable. The lung bases are unremarkable. No acute osseous abnormality identified. IMPRESSION: Nonobstructive bowel gas pattern. The left UVJ stone not definitively visualized. Correlate clinically.
[2025-03-12] MEDS: MORPHINE SULFATE 4 MG/ML SYR/VIAL IV PRN (14:44)
[2025-03-12] MEDS ORDERED: METOCLOPRAMIDE HCL 5MG/ml INJ 2ml VIAL IV PRN (23:00)
[2025-03-12] MEDS: D5W 5% 1,000 ML IV SCH (23:00)
[2025-03-12] MEDS ORDERED: ONDANSETRON HCL 4 MG/2 ML VIAL IV PRN (23:00)
[2025-03-12] MEDS: METOCLOPRAMIDE HCL 5MG/ml INJ 2ml VIAL IV ONE (23:34)
[2025-03-13 01:00] VITALS: BP 116/75; PULSE 50; RESP 19; TEMP 98; O2SAT 100
[2025-03-13 05:18] VITALS: BP 110/63; PULSE 43; RESP 20; TEMP 98; O2SAT 98
[2025-03-13 07:19] LABS: Hematocrit 39.6 % (41.0-53.0); Hemoglobin 13.6 g/dL (13.5-17.5); Mean Corpuscular Hemoglobin 34.1 pg (28.0-32.0); Mean Corpuscular Volume 99.1 fL (80.0-100.0); Nucleated Red Blood Cells % 0.1 %
[2025-03-13 07:24] LABS: Alanine Aminotransferase 16 U/L (7-40); Anion Gap 9 (5-15); Calcium 8.9 mg/dL (8.7-10.4); Carbon Dioxide 25 mmol/L (20-31); Glucose 76 mg/dL (74-106); Potassium 3.7 mmol/L (3.5-5.1); Sodium 145 mmol/L (136-145)
[2025-03-13 07:25] LABS: BUN/Creatinine Ratio 7.3 (10.0-20.0); Total Protein 6.3 g/dL (5.7-8.2)
[2025-03-13 07:26] LABS: Albumin 4.0 g/dL (3.2-4.8); Bilirubin, Total 0.3 mg/dL (0.2-1.0); Blood Urea Nitrogen 8 mg/dL (9-23); Chloride 111 mmol/L (98-107)
[2025-03-13 07:42] LABS: Alkaline Phosphatase 42 U/L (46-116)
[2025-03-13 08:30] VITALS: PULSE 56; RESP 18; O2SAT 99
[2025-03-13 09:00] VITALS: BP 131/88; PULSE 56; RESP 18; TEMP 98.3; O2SAT 99
[2025-03-13 09:51] LABS: Hepatitis B Surface Antigen Negative (Negative)
[2025-03-13 10:14] LABS: Hepatitis C Antibody Negative (Negative)
[2025-03-13 13:00] VITALS: BP 131/88; PULSE 56; RESP 18; TEMP 98.3; O2SAT 99
[2025-03-13] MEDS ORDERED: CEPH500T PO (13:21)
[2025-03-13] MEDS ORDERED: TAMS0.4C39 PO (13:22)
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
== END 2025-03-13 16:15 | disposition home or self-care (01) | DRG 463 ==
LOC: ER 07:25 → OVERFLOW 11:40 → WEST WING 03-11 21:43
PROVIDERS: ADMIT Internal Medicine Geriatric Medicine; ATTEND Internal Medicine Geriatric Medicine
DX: N13.6 Pyonephrosis (principal); N17.0 Acute kidney failure with tubular necrosis; I10 Essential (primary) hypertension; E27.8 Other specified disorders of adrenal gland; N21.0 Calculus in bladder; K57.30 Diverticulosis of large intestine without perforation or abscess without bleeding; Z87.442 Personal history of urinary calculi
CPT/HCPCS: 36415; 74018; 74176; 76775; 80048; 80053; 80061; 80076; 80307; 81001; 82306; 82607; 83036; 83735; 84100; 84443; 85025; 85610; 85730; 86803; 87040; 87081; 87086; 87340; 96365; 96375; 99291; G0378; J1885; J2405